=== PATIENT | male | born 1980 | race African-American/Black ===

== ENCOUNTER 2021-12-28 09:59 | Outpatient (CLI) | payer BC, MEDICARE ==
[2021-12-28 11:32] LABS: #Basophils 0.1 10x3/uL (0.0-0.2); #Eosinphils 0.2 10x3/uL (0.0-0.5); #Monocytes 0.7 10x3/uL (0.0-1.1); #Neutrophils 4.8 10x3/uL (1.5-8.4); %Basophils 0.8 % (0.0-2.0); %Eosinophils 2.2 % (0.0-6.0); %Lymphocytes 24.2 % (18.0-47.0); %Monocytes 8.8 % (0.0-10.0); %Neutrophils 63.7 % (40.0-75.0); Hemoglobin 14.1 g/dL (13.5-17.5); Mean Corpuscular HGB CONC 33.3 g/dL (32.0-36.0); Mean Corpuscular Hemoglobin 30.2 pg (27.0-33.0); Mean Corpuscular Volume 90.6 fl (81.2-95.1); Mean Platelet Volume 10.1 fl (7.4-10.4); Platelet Count 193 10x3/uL (150-450); RBC Distribution Width 12.7 % (11.5-14.5); Red Blood Cell (RBC) Count 4.67 10x6/uL (4.32-5.72); White Blood Cell (WBC) Count 7.6 10x3/uL (3.5-10.5)
[2021-12-28 11:35] LABS: Anion Gap 15 mmol/L (10-20); BUN (Urea Nitrogen) 18 mg/dL (8.9-20.6); Calc. Creatinine Clearance 0 mL/min (70-130); Calcium 9.7 mg/dL (7.8-10.44); Carbon Dioxide 25 mmol/L (22-29); Chloride 106 mmol/L (98-107); Glucose 88 mg/dL (70-105); Potassium 3.2 mmol/L (3.5-5.1); Sodium 143 mmol/L (136-145)
== END 2021-12-28 10:00 | disposition home or self-care (01) ==
LOC: LABBT 09:59
PROVIDERS: ATTEND Specialist
DX: Z01.818 Encounter for other preprocedural examination (principal); Z94.0 Kidney transplant status; M79.602 Pain in left arm; Z20.822 Contact with and (suspected) exposure to COVID-19
CPT/HCPCS: 80048; 85025; 93005; 93010; U0003; U0005

== ENCOUNTER 2022-01-02 08:06 | Day surgery (SDC) | payer BC, MEDICARE ==
[2021-12-31 12:08] VITALS: BMI 29.2
[2022-01-02] MEDS ORDERED: fentaNYL Citrate/PF 100 MCG/2 ML SYRINGE ONE ×2 (09:21)
[2022-01-02] MEDS ORDERED: Bupivacaine PF 0.5% 30 ML VIAL ONE (09:28)
[2022-01-02] MEDS ORDERED: Lidocaine 1% w/Epinephrine 1:100K 30 ML VIAL ONE (09:28)
[2022-01-02] MEDS ORDERED: Heparin 5,000 UNITS/ML VIAL ONE (09:28)
[2022-01-02] MEDS ORDERED: Protamine Sulfate 50 MG/5 ML VIAL ONE (09:28)
[2022-01-02] MEDS ORDERED: Phenylephrine 10 MG/ML VIAL ONE (09:45)
[2022-01-02] MEDS ORDERED: CEFAZOLIN 2 GM VIAL ONE (09:49)
[2022-01-02] MEDS ORDERED: Sodium Chloride 0.9% 100 ML ONE (09:49)
== END 2022-01-02 14:02 | disposition home or self-care (01) ==
LOC: SDC 08:06
PROVIDERS: ATTEND Specialist
PROC: 05LF0ZZ Occlusion of Left Cephalic Vein, Open Approach (ICD-10-PCS; principal; 2022-01-02)
DX: T82.510A Breakdown (mechanical) of surgically created arteriovenous fistula, initial encounter (principal); I13.2 Hypertensive heart and chronic kidney disease with heart failure and with stage 5 chronic kidney disease, or end stage renal disease; N18.6 End stage renal disease; I50.9 Heart failure, unspecified; M79.0 Rheumatism, unspecified; Z79.52 Long term (current) use of systemic steroids; Z87.891 Personal history of nicotine dependence; Z79.899 Other long term (current) drug therapy; Z88.5 Allergy status to narcotic agent; Z94.0 Kidney transplant status; Y81.1 Therapeutic (nonsurgical) and rehabilitative general- and plastic-surgery devices associated with adverse incidents
CPT/HCPCS: C1776; J0690; J1644; J2370; J2720; J3490; S0020

== ENCOUNTER 2022-01-07 22:50 | Observation (INO) | payer BC, MEDICARE ==
[2022-01-08 01:29] VITALS: BMI 29.2
[2022-01-08] MEDS ORDERED: Electrolyte Replacement Protocol 1 EACH FS SCH (06:00)
[2022-01-08 06:36] LABS: Anion Gap 9 mmol/L (10-20); BUN (Urea Nitrogen) 17 mg/dL (8.9-20.6); Band 3 % (5-11); Calc. Creatinine Clearance 81 mL/min (70-130); Calcium 9.1 mg/dL (7.8-10.44); Carbon Dioxide 27 mmol/L (22-29); Chloride 103 mmol/L (98-107); Glucose 133 mg/dL (70-105); Hemoglobin 11.8 g/dL (14.0-18.0); Lymphocytes 13 % (21-51); MDiff Complete? YES; Magnesium 1.4 mg/dL (1.6-2.6); Mean Corpuscular HGB CONC 31.5 g/dL (32.0-36.0); Mean Corpuscular Hemoglobin 30.3 pg (27.0-31.0); Mean Corpuscular Volume 96.1 fL (78.0-98.0); Mean Platelet Volume 7.2 fL (7.4-10.4); Monocytes 19 % (0-10); Neutrophil 63 % (42-75); Platelet Count 150 thou/uL (130-400); RBC Distribution Width 11.3 % (11.5-14.5); Reactive Lymphocytes 2 % (0-10); Red Blood Cell (RBC) Count 3.88 mill/uL (4.70-6.10); Sodium 136 mmol/L (136-145); White Blood Cell (WBC) Count 9.8 thou/uL (4.8-10.8)
[2022-01-08] MEDS ORDERED: Vancomycin Dialysis Sliding Scale (Wt > 99) FS SCH (07:00)
[2022-01-08] MEDS ORDERED: Ondansetron PF 4 MG/2 ML Vial IVP PRN (07:30)
[2022-01-08] MEDS ORDERED: Acetaminophen 650 MG Suppository PR PRN (07:30)
[2022-01-08] MEDS ORDERED: Acetaminophen 325 MG TAB PO PRN (07:30)
[2022-01-08] MEDS ORDERED: Ondansetron ODT 4 MG TAB PO PRN (07:30)
[2022-01-08] MEDS ORDERED: Potassium Chloride 20 MEQ TAB PO SCH (08:00)
[2022-01-08] MEDS ORDERED: VANCOMYCIN 1.25 GM/250 ML BAG IVPB SCH (09:00)
[2022-01-08] MEDS ORDERED: Magnesium Sulfate In Water 4 GM in Premix Bag 1 BAG IVPB SCH (09:00)
[2022-01-08] MEDS ORDERED: Mycophenolate 250 MG CAP PO SCH (09:00)
[2022-01-08] MEDS ORDERED: Tacrolimus 0.5 MG CAP PO SCH (09:00)
[2022-01-08] MEDS ORDERED: predniSONE 5 MG TAB PO SCH (09:00)
[2022-01-08] MEDS ORDERED: Tacrolimus 1 MG CAP PO SCH ×2 (09:00)
[2022-01-08 11:30] VITALS: BP 115/73; TEMP 98.7
[2022-01-08] MEDS: Potassium Chloride 20 MEQ TAB PO SCH ×2 (11:44→11:45)
[2022-01-08] MEDS ORDERED: Cephalexin 250 MG CAP PO SCH (15:00)
[2022-01-08] MEDS ORDERED: Cefepime 1 GM in Sodium Chloride 0.9% 100 ML IVPB SCH (21:00)
== END 2022-01-08 14:24 | disposition home or self-care (01) ==
LOC: T4-A 01-08 00:33 → INTOOBSV 01-08 00:33
PROVIDERS: ADMIT Student in an Organized Health Care Education/Training Program; ATTEND Student in an Organized Health Care Education/Training Program
DX: R22.32 Localized swelling, mass and lump, left upper limb (principal); R50.9 Fever, unspecified; R65.10 Systemic inflammatory response syndrome (SIRS) of non-infectious origin without acute organ dysfunction; I12.0 Hypertensive chronic kidney disease with stage 5 chronic kidney disease or end stage renal disease; N18.6 End stage renal disease; I42.9 Cardiomyopathy, unspecified; E87.6 Hypokalemia; E83.42 Hypomagnesemia; Z79.52 Long term (current) use of systemic steroids; Z79.899 Other long term (current) drug therapy; Z88.5 Allergy status to narcotic agent; Z94.0 Kidney transplant status; Z98.890 Other specified postprocedural states; Z20.822 Contact with and (suspected) exposure to COVID-19
CPT/HCPCS: 36415; 80048; 83735; 85025; G0378; J3475; J7507; J7512; J7517; U0003; U0005